=== PATIENT | female | born 1950 | race Caucasian/White ===

== ENCOUNTER 2023-05-08 17:05 | Emergency (ER) | payer MEDICARE, OTHER ==
[~2023-05-08] VITALS: Ht 167.6 cm; Wt 89.4 kg
[2023-05-08] MEDS ORDERED: PANTOPRAZOLE 40 MG VIAL IV ONE (17:30)
[2023-05-08] MEDS ORDERED: IV NS 0.9% 1,000 ML BAG IV ONE ×2 (17:30→21:30)
[2023-05-08] MEDS ORDERED: ONDANSETRON HCL/PF 4 MG/2 ML VIAL IVP ONE (17:30)
[2023-05-08 17:50] LABS: BASOPHILS # (AUTO) 0.1 K/uL (0.0-0.2); EOSINOPHILS # (AUTO) 0.1 K/uL (0.0-0.7); EOSINOPHILS % (AUTO) 0.7 % (0.0-6.0); HEMATOCRIT 44 % (33-45); HEMOGLOBIN 14.5 g/dL (11.5-14.8); LYMPHOCYTES # (AUTO) 0.8 K/uL (0.8-4.8); LYMPHOCYTES % (AUTO) 10.4 % (20.0-44.0); MEAN CORPUSCULAR HEMOGLOBIN 28 PG (26.0-33.0); MEAN CORPUSCULAR HGB CONC 33 g/dl (31.0-36.0); MEAN CORPUSCULAR VOLUME 85 fL (82-100); MONOCYTES # (AUTO) 0.8 K/uL (0.1-1.30); NEUTROPHILS # (AUTO) 6.3 K/uL (1.8-8.9); NEUTROPHILS % (AUTO) 77.9 % (43.0-81.0); PLATELET COUNT (AUTO) 393 K/uL (150-450); RED BLOOD CELL COUNT(AUTO) 5.11 MIL/uL (4.0-5.2); RED CELL DISTRIBUTION WIDTH 13.8 % (11.5-15.0)
[2023-05-08] MEDS ORDERED: ONDANSETRON HCL/PF 4 MG/2 ML VIAL ONE (17:52)
[2023-05-08] MEDS ORDERED: PANTOPRAZOLE 40 MG VIAL ONE (17:52)
[2023-05-08 17:57] LABS: CALCIUM, SERUM 9.9 mg/dL (8.5-10.1); POTASSIUM 4.3 mmol/L (3.5-5.1)
[2023-05-08] MEDS ORDERED: CT SWABBABLE VALVE TRANS SET 1 EA INFUS.SET MC ONE (18:03)
[2023-05-08] MEDS ORDERED: IOHEXOL-300 100 ML VIAL IV ONE (18:03)
[2023-05-08] MEDS ORDERED: IV NS 0.9% 250 ML IV ONE (18:03)
[2023-05-08 18:20] LABS: ALBUMIN 3.8 g/dL (3.4-5.0); BILIRUBIN,DIRECT 0.1 mg/dL (0.0-0.2); BILIRUBIN,TOTAL 0.3 mg/dL (0.2-1.0); TOTAL PROTEIN, SERUM 7.8 g/dL (6.4-8.2)
[2023-05-08 20:27] VITALS: BP 135/75; TEMP 98.4; O2SAT 100
== END 2023-05-08 21:40 | disposition home or self-care (01) ==
LOC: ER 17:09
DX: R10.9 Unspecified abdominal pain (principal); R53.1 Weakness; I10 Essential (primary) hypertension; F32.A Depression, unspecified; E03.9 Hypothyroidism, unspecified; Z88.0 Allergy status to penicillin; Z88.2 Allergy status to sulfonamides; Z88.5 Allergy status to narcotic agent; Z60.2 Problems related to living alone
CPT/HCPCS: 99285; 74177; 96374; 96361; 96375; 93005; 85025; 80048; 83690; 80076; 36415; J2405; J7030; J7050; C9113; Q9967